=== PATIENT | male | born 1950 | race Caucasian/White ===

== ENCOUNTER 2021-07-29 07:11 | Day surgery (SDC) | payer MEDICARE, BC ==
[~2021-07-29] VITALS: Ht 180.3 cm; Wt 93.9 kg
[~2021-07-29 07:11] MED LIST: ATOR20 PO; Aspirin EC81 MG; BENAML10/2 PO; [UNRECOGNIZED DRUG - OTHER] PO
[2021-07-29] MEDS ORDERED: OMEP20ER (07:59)
[2021-08-02] MEDS ORDERED: ELIQUIS5 M2 PO (21:39)
[2021-08-02] MEDS ORDERED: DOXY100 PO (23:56)
== END 2021-07-29 09:55 | disposition home or self-care (01) ==
LOC: ORSCSDS 07:11
PROVIDERS: Internal Medicine Gastroenterology
PROC: 0DBK8ZX Excision of Ascending Colon, Via Natural or Artificial Opening Endoscopic, Diagnostic (ICD-10-PCS; principal; 2021-07-29 08:45)
PROC: 0DBL8ZX Excision of Transverse Colon, Via Natural or Artificial Opening Endoscopic, Diagnostic (ICD-10-PCS; principal; 2021-07-29 08:45)
DX: Z12.11 Encounter for screening for malignant neoplasm of colon (principal); Z86.010 Personal history of colon polyps; D12.2 Benign neoplasm of ascending colon; D12.3 Benign neoplasm of transverse colon; C90.00 Multiple myeloma not having achieved remission; K64.8 Other hemorrhoids; I10 Essential (primary) hypertension; E11.9 Type 2 diabetes mellitus without complications; Z79.84 Long term (current) use of oral hypoglycemic drugs; Z79.899 Other long term (current) drug therapy
CPT/HCPCS: 82947; 88305; J2704; J7120

== ENCOUNTER → 2021-07-31 | Outpatient (CLI) | payer MEDICARE, BC ==
[~2021-07-31] MED LIST changes: +DOXY100 PO; +ELIQUIS5 M2 PO; +OMEP20ER
[2021-07-31 13:39] LABS: BASOPHILS ABSOLUTE AUTO 0.01 K/mm3 (0.00-0.23); BASOPHILS PERCENT AUTO 0 % (0-2); EOSINOPHILS ABSOLUTE AUTO 0.09 K/mm3 (0.00-0.68); EOSINOPHILS PERCENT AUTO 2 % (0-6); Hematocrit 39.6 % (37.0-53.0); Hemoglobin 13.5 g/dL (13.5-17.5); IMMATURE GRAN ABSOLUTE AUTO 0.16 K/mm3 (0.00-0.10); IMMATURE GRAN PERCENT AUTO 3 % (0-1); LYMPHOCYTES ABSOLUTE AUTO 0.23 K/mm3 (0.84-5.20); LYMPHOCYTES PERCENT AUTO 4 % (21-46); MONOCYTES ABSOLUTE AUTO 0.36 K/mm3 (0.16-1.47); MONOCYTES PERCENT AUTO 6 % (4-13); Mean Corpuscular HGB 30.5 pg (26.0-34.0); Mean Corpuscular HGB Conc 34.1 g/dL (31.5-36.5); Mean Corpuscular Volume 90 fL (80-100); Mean Platelet Volume 10.5 fL (9.1-12.4); NEUTROPHILS PERCENT AUTO 86 % (41-73); Platelet Count 207 K/mm3 (150-400); RDW Coefficient Variation 16.4 % (11.7-14.2); RDW Standard Deviation 53.1 fL (35.1-46.3); Red Blood Cell Count 4.42 M/mm3 (4.30-5.90); White Blood Cell Count 6.05 K/mm3 (4.00-11.30)
[2021-07-31 13:48] LABS: Alanine Aminotransfer (ALT/SGP 49 U/L (12-78); Albumin, Blood 3.2 g/dL (3.4-5.0); Alk Phos 79 U/L (40-126); Anion Gap 11 mmol/L (6-16); Aspartate Aminotrans (AST/SGOT 25 U/L (12-37); Bilirubin, Total 1.1 mg/dL (0.1-1.0); Blood Urea Nitrogen 15 mg/dL (8-24); CO2, Blood 28 mmol/L (21-32); Calcium, Blood 8.3 mg/dL (8.5-10.1); Chloride, Blood 103 mmol/L (98-108); Creatinine, Blood 1.07 mg/dL (0.60-1.20); Globulin, Blood 3.2 g/dL (2.2-4.0); Glomerular Filtration Rate >60 (60-); Glucose, Blood 92 mg/dL (70-99); Potassium, Blood 3.4 mmol/L (3.5-5.5); Sodium, Blood 142 mmol/L (136-145); Total Protein, Blood 6.4 g/dL (6.4-8.2)
[2021-07-31 14:37] LABS: BASOPHILS PERCENT MAN 0 % (0-2); EOSINOPHILS ABSOLUTE MAN 0.06 K/mm3 (0.00-0.68); EOSINOPHILS PERCENT MAN 1 % (0-6); LYMPHOCYTES ABSOLUTE MAN 0.18 K/mm3 (0.84-5.20); LYMPHOCYTES PERCENT MAN 3 % (21-46); MONOCYTES ABSOLUTE MAN 0.24 K/mm3 (0.16-1.47); MONOCYTES PERCENT MAN 4 % (4-13); TOTAL CELLS COUNTED 100
[2021-07-31 14:38] LABS: METAMYELOCYTE ABSOLUTE MAN 0.06 K/mm3 (0.00-0.00); METAMYELOCYTE PERCENT MAN 1 % (0-0); MYELOCYTE ABSOLUTE MAN 0.12 K/mm3 (0.00-0.00); MYELOCYTE PERCENT MAN 2 % (0-0); NEUTROPHILS ABSOLUTE MAN 5.38 K/mm3 (1.96-9.15); SEG NEUTROPHILS PERCENT MAN 89 % (41-73)
== END | disposition home or self-care (01) ==
LOC: LAB 13:35 → LAB SHORT 13:35
PROVIDERS: Chiropractor
DX: M79.661 Pain in right lower leg (principal)
CPT/HCPCS: 80053; 85025

== ENCOUNTER 2021-11-15 08:55 | Day surgery (SDC) | payer MEDICARE, BC ==
[~2021-11-15 08:55] MED LIST changes: +ACYC400 PO; +ACYCLOVIR400 MG PO; +AMLODIPINE-BEN1 EAC5 PO; +B12-FOLIC ACID1 EACH PO; +DECADRON4 M1 PO; +DEXA4 PO; +DULO60 PO; +DULOXETINE HCL60 M1 PO; +GLIP5 PO; +GLIP5ER PO; +OMEP20ER PO; +POTASSIUM CHLO20 MEQ PO; +SITA25T2; +Vitamin B-Comp1 EACH PO
== END 2021-11-15 09:25 | disposition home or self-care (01) ==
LOC: ATC 08:55
DX: C90.01 Multiple myeloma in remission (principal); I10 Essential (primary) hypertension; E11.9 Type 2 diabetes mellitus without complications; K21.9 Gastro-esophageal reflux disease without esophagitis; E78.5 Hyperlipidemia, unspecified; Z79.01 Long term (current) use of anticoagulants; Z79.899 Other long term (current) drug therapy
CPT/HCPCS: 96372; Q5110

== ENCOUNTER 2022-10-13 10:02 | Emergency (ER) | payer MEDICARE, BC ==
[~2022-10-13] VITALS: Ht 180.3 cm; Wt 93.0 kg
[2022-10-13 11:16] LABS: Hematocrit 37.5 % (37.0-53.0); Hemoglobin 12.8 g/dL (13.5-17.5); Mean Corpuscular HGB 30.8 pg (26.0-34.0); Mean Corpuscular HGB Conc 34.1 g/dL (31.5-36.5); Mean Corpuscular Volume 90 fL (80-100); Mean Platelet Volume 11.9 fL (9.1-12.4); Platelet Count 111 K/mm3 (150-400); RDW Coefficient Variation 17.1 % (11.7-14.2); RDW Standard Deviation 57.1 fL (35.1-46.3); Red Blood Cell Count 4.16 M/mm3 (4.30-5.90); White Blood Cell Count 7.86 K/mm3 (4.00-11.30)
[2022-10-13 11:35] LABS: Albumin, Blood 2.4 g/dL (3.4-5.0); Albumin/Globulin Ratio 0.5 (0.8-1.8); Bilirubin, Total 1.4 mg/dL (0.1-1.0); Bun/Creatinine Ratio 12.5 (12.0-20.0); Calcium, Blood 8.2 mg/dL (8.5-10.1); Creatinine, Blood 1.04 mg/dL (0.60-1.20); Globulin, Blood 4.5 g/dL (2.2-4.0); Potassium, Blood 3.5 mmol/L (3.5-5.5); Total Protein, Blood 6.9 g/dL (6.4-8.2)
[2022-10-13] MEDS ORDERED: ELIQUIS5 M3 PO (12:01)
[2022-10-13] MEDS ORDERED: JARDIANCE10 MG PO (12:01)
[2022-10-13] MEDS ORDERED: AZIT250 PO (12:01)
[2022-10-13] MEDS ORDERED: NEURONTIN300 MG PO (12:02)
[2022-10-13] MEDS ORDERED: K-Dur20 MEQ PO (12:02)
[2022-10-13] MEDS ORDERED: OMEP20ER PO (12:02)
[2022-10-13] MEDS ORDERED: POMALYST4 MG PO (12:02)
[2022-10-13] MEDS ORDERED: GLIP5ER PO (12:02)
[2022-10-13 12:15] LABS: Source, Urine Clean Catch
[2022-10-13 12:26] LABS: Appearance, Urine Clear (Clear); Bilirubin, Urine Neg (Neg); Blood, Urine Neg (Neg); Color, Urine Yellow (P-Yellow); Glucose Qualitative, Urine 4+ (Neg); Ketones, Urine Neg (Neg); Leukocyte Esterase, Urine Neg (Neg); Nitrite, Urine Neg (Neg); Protein, Urine 2+ (Neg); Urobilinogen, Urine NORM (Normal)
[2022-10-13 12:50] LABS: White Blood Cells, Urine Not Seen /hpf (0-5)
[2022-10-13 12:51] LABS: Amorphous Light (0-Heavy); Bacteria Few /hpf; Red Blood Cells, Urine Not Seen /hpf (0-2); Squamous Epithelial Cells Rare /hpf (Few)
[2022-10-13 13:26] LABS: BAND PERCENT MAN 2 % (0-8); BASOPHILS PERCENT MAN 0 % (0-2); EOSINOPHILS PERCENT MAN 0 % (0-6); LYMPHOCYTES ABSOLUTE MAN 0.47 K/mm3 (0.84-5.20); LYMPHOCYTES PERCENT MAN 6 % (21-46); MONOCYTES ABSOLUTE MAN 0.55 K/mm3 (0.16-1.47); MONOCYTES PERCENT MAN 7 % (4-13); NEUTROPHILS ABSOLUTE MAN 6.83 K/mm3 (1.96-9.15); SEG NEUTROPHILS PERCENT MAN 85 % (41-73); TOTAL CELLS COUNTED 100
[2022-10-13 13:30] VITALS: BP 132/73
== END 2022-10-13 13:56 | disposition home or self-care (01) ==
LOC: ER 10:02
PROVIDERS: Physician Assistant
DX: R41.3 Other amnesia (principal); J18.9 Pneumonia, unspecified organism; I10 Essential (primary) hypertension; E78.00 Pure hypercholesterolemia, unspecified; Z85.828 Personal history of other malignant neoplasm of skin; Z88.0 Allergy status to penicillin; Z91.048 Other nonmedicinal substance allergy status; Z88.8 Allergy status to other drugs, medicaments and biological substances; Z79.01 Long term (current) use of anticoagulants; Z79.84 Long term (current) use of oral hypoglycemic drugs; Z79.899 Other long term (current) drug therapy; C90.00 Multiple myeloma not having achieved remission; R91.8 Other nonspecific abnormal finding of lung field
CPT/HCPCS: 36415; 70450; 71046; 80053; 81001; 85025; 93005; 93010; 99285-25

== ENCOUNTER 2022-12-13 14:02 | Day surgery (SDC) | payer MEDICARE, BC ==
[~2022-12-13 14:02] MED LIST changes: +AZIT250 PO; +ELIQUIS5 M3 PO; +JARDIANCE10 MG PO; +K-Dur20 MEQ PO; +NEURONTIN300 MG PO; +POMALYST4 MG PO
[2022-12-13 14:25] VITALS: BP 136/79
[2022-12-13 15:17] LABS: BASOPHILS ABSOLUTE AUTO 0.01 K/mm3 (0.00-0.23); BASOPHILS PERCENT AUTO 0 % (0-2); EOSINOPHILS ABSOLUTE AUTO 0.14 K/mm3 (0.00-0.68); EOSINOPHILS PERCENT AUTO 5 % (0-6); Hematocrit 40.3 % (37.0-53.0); Hemoglobin 13.7 g/dL (13.5-17.5); IMMATURE GRAN PERCENT AUTO 0 % (0-1); LYMPHOCYTES ABSOLUTE AUTO 0.82 K/mm3 (0.84-5.20); LYMPHOCYTES PERCENT AUTO 30 % (21-46); MONOCYTES ABSOLUTE AUTO 0.34 K/mm3 (0.16-1.47); MONOCYTES PERCENT AUTO 12 % (4-13); Mean Corpuscular HGB 32.5 pg (26.0-34.0); Mean Corpuscular Volume 96 fL (80-100); Mean Platelet Volume 11.5 fL (9.1-12.4); NEUTROPHILS ABSOLUTE AUTO 1.46 K/mm3 (1.96-9.15); NEUTROPHILS PERCENT AUTO 53 % (41-73); Platelet Count 74 K/mm3 (150-400); RDW Coefficient Variation 15.9 % (11.7-14.2); RDW Standard Deviation 56.1 fL (35.1-46.3); Red Blood Cell Count 4.21 M/mm3 (4.30-5.90); White Blood Cell Count 2.77 K/mm3 (4.00-11.30)
[2022-12-13 15:39] LABS: Albumin, Blood 4.1 g/dL (3.4-5.0); Bilirubin, Total 1.2 mg/dL (0.1-1.0); Calcium, Blood 8.7 mg/dL (8.5-10.1); Creatinine, Blood 1.17 mg/dL (0.60-1.20); Globulin, Blood 2.1 g/dL (2.2-4.0); Potassium, Blood 3.6 mmol/L (3.5-5.5); Total Protein, Blood 6.2 g/dL (6.4-8.2)
== END 2022-12-13 14:40 | disposition home or self-care (01) ==
LOC: ATC 14:02
PROVIDERS: Internal Medicine Hematology & Oncology
DX: C90.00 Multiple myeloma not having achieved remission (principal); Z88.8 Allergy status to other drugs, medicaments and biological substances; Z88.0 Allergy status to penicillin; I10 Essential (primary) hypertension; E78.5 Hyperlipidemia, unspecified; K21.9 Gastro-esophageal reflux disease without esophagitis; E11.9 Type 2 diabetes mellitus without complications
CPT/HCPCS: 36592; 80053; 83615; 85025

== ENCOUNTER 2023-03-16 09:35 | Day surgery (SDC) | payer MEDICARE, BC ==
[~2023-03-16] VITALS: Ht 180.3 cm; Wt 68.4 kg
[2023-03-16] MEDS ORDERED: ENOX80I SC (09:54)
[2023-03-16] MEDS ORDERED: ACYCLOVIR400 MG PO (09:54)
[2023-03-16] MEDS ORDERED: HYDCHL25 PO (09:57)
[2023-03-16] MEDS ORDERED: LOTREL 10-20 M1 EACH PO (09:59)
[2023-03-16 11:27] VITALS: BP 121/73
== END 2023-03-16 11:20 | disposition home or self-care (01) ==
LOC: ORSCSDS 09:35
PROVIDERS: Internal Medicine Gastroenterology
PROC: 0DBH8ZX Excision of Cecum, Via Natural or Artificial Opening Endoscopic, Diagnostic (ICD-10-PCS; principal; 2023-03-16 11:00)
PROC: 0DBP8ZX Excision of Rectum, Via Natural or Artificial Opening Endoscopic, Diagnostic (ICD-10-PCS; principal; 2023-03-16 11:00)
PROC: 0DBB8ZX Excision of Ileum, Via Natural or Artificial Opening Endoscopic, Diagnostic (ICD-10-PCS; principal; 2023-03-16 11:00)
PROC: 0DBM8ZX Excision of Descending Colon, Via Natural or Artificial Opening Endoscopic, Diagnostic (ICD-10-PCS; principal; 2023-03-16 11:00)
PROC: 0DBN8ZX Excision of Sigmoid Colon, Via Natural or Artificial Opening Endoscopic, Diagnostic (ICD-10-PCS; principal; 2023-03-16 11:00)
PROC: 0DBL8ZX Excision of Transverse Colon, Via Natural or Artificial Opening Endoscopic, Diagnostic (ICD-10-PCS; principal; 2023-03-16 11:00)
DX: K52.9 Noninfective gastroenteritis and colitis, unspecified (principal); Z87.19 Personal history of other diseases of the digestive system; Z86.010 Personal history of colon polyps; Z79.899 Other long term (current) drug therapy
CPT/HCPCS: 82947; 88305; J2704; J7120

== ENCOUNTER → 2024-06-04 | Outpatient (CLI) | payer MEDICARE ==
[~2024-06-04] MED LIST changes: +ENOX80I SC; +GABA300 PO; +HYDCHL25 PO; +LOTREL 10-20 M1 EACH PO; +NUBEQA300 MG PO; +POTA10T PO; +SITA100T2 PO; +TAMS.4ER PO
[2024-06-04 16:50] LABS: Adenovirus F 40/41 Not Detected (NOT DETECT); Astrovirus Not Detected (NOT DETECT); Campylobacter Sp Not Detected (NOT DETECT); Cryptosporidium Not Detected (NOT DETECT); Cyclospora Cayetanensis Not Detected (NOT DETECT); E. Coli O157 Not Detected (NOT DETECT); Entamoeba Histolytica Not Detected (NOT DETECT); Enteroaggregative E. coli-EAEC Not Detected (NOT DETECT); Enteropathogenic E. coli-EPEC Not Detected (NOT DETECT); Enterotoxigenic E. coli-ETEC Not Detected (NOT DETECT); Giardia Lamblia Not Detected (NOT DETECT); Norovirus GI/GII Not Detected (NOT DETECT); Plesiomonas Shigelloides Not Detected (NOT DETECT); Rotavirus A Not Detected (NOT DETECT); Salmonella Sp Not Detected (NOT DETECT); Sapovirus Not Detected (NOT DETECT); Shiga Toxin-prod E. coli-STEC Not Detected (NOT DETECT); Shigella/Enteroin E. coli-EIEC Not Detected (NOT DETECT); Vibrio Cholerae Not Detected (NOT DETECT); Vibrio Sp Not Detected (NOT DETECT); Yersinia Enterocolitica Not Detected (NOT DETECT)
== END ==
LOC: LAB 13:54 → LAB SHORT 13:54
PROVIDERS: Internal Medicine
DX: R19.7 Diarrhea, unspecified (principal)
CPT/HCPCS: 87507

== ENCOUNTER 2024-06-07 09:26 | Day surgery (SDC) | payer MEDICARE, BC ==
[~2024-06-07] VITALS: Ht 180.3 cm; Wt 96.2 kg
[~2024-06-07 09:26] MED LIST changes: -GABA300 PO; +NS 500 ML IV ONE; -NUBEQA300 MG PO; -POTA10T PO; -SITA100T2 PO; -TAMS.4ER PO
[2024-06-07] MEDS ORDERED: CeFAZolin Sodium 2,000 MG VIAL ONE (09:32)
[2024-06-07] MEDS ORDERED: Lidocaine HCl 2% 10 ML SDA ONE (09:42)
[2024-06-07] MEDS ORDERED: Triamcinolone Inj Susp 40 MG / ML 1ML Vial ONE (09:42)
[2024-06-07] MEDS ORDERED: SITA100T2 PO (10:06)
[2024-06-07] MEDS ORDERED: NUBEQA300 MG PO (10:06)
[2024-06-07] MEDS ORDERED: TAMS.4ER PO (10:06)
[2024-06-07] MEDS ORDERED: GABA300 PO (10:07)
[2024-06-07] MEDS ORDERED: POTA10T PO (10:07)
[2024-06-07] MEDS ORDERED: NS 500 ML IV ONE (10:21)
[2024-06-07] MEDS ORDERED: propofoL 20 ML IV ONE (10:27)
[2024-06-07] MEDS ORDERED: Lidocaine 1%-Epineph 1:100000 20 ML MDV XX ONE (10:56)
[2024-06-07] MEDS ORDERED: Sodium Bicarb 8.4% 1 MEQ/ML 50 ML Vial XX ONE (10:56)
[2024-06-07 11:33] VITALS: BP 139/75
== END 2024-06-07 11:41 | disposition home or self-care (01) ==
LOC: ORSCSDS 09:26
PROVIDERS: Orthopaedic Surgery
PROC: 0LN80ZZ Release Left Hand Tendon, Open Approach (ICD-10-PCS; 2024-06-07)
PROC: 3E0U33Z Introduction of Anti-inflammatory into Joints, Percutaneous Approach (ICD-10-PCS; principal; 2024-06-07 10:45)
DX: M65.342 Trigger finger, left ring finger (principal); M65.341 Trigger finger, right ring finger; G47.33 Obstructive sleep apnea (adult) (pediatric); I10 Essential (primary) hypertension; E11.9 Type 2 diabetes mellitus without complications; K21.9 Gastro-esophageal reflux disease without esophagitis; Z86.718 Personal history of other venous thrombosis and embolism; Z79.84 Long term (current) use of oral hypoglycemic drugs; Z79.899 Other long term (current) drug therapy; Z01.812 Encounter for preprocedural laboratory examination
CPT/HCPCS: 36415; 82947; 84132; J0690; J2003; J2704; J3301; J7040

== ENCOUNTER → 2024-08-16 | Outpatient (CLI) | payer MEDICARE, BC | LOC: LAB SHORT 10:25 → LAB 10:25 | DX: E11.8 Type 2 diabetes mellitus with unspecified complications (principal) ==

== ENCOUNTER → 2024-12-05 | Outpatient (CLI) | payer MEDICARE, BC ==
[~2024-12-05] MED LIST changes: +GABA300 PO; -NS 500 ML IV ONE; +NUBEQA300 MG PO; +POTA10T PO; +SITA100T2 PO; +TAMS.4ER PO
== END ==
LOC: LAB SHORT 07:53 → LAB 07:53
DX: J34.89 Other specified disorders of nose and nasal sinuses (principal)
CPT/HCPCS: 88305